=== PATIENT | female | born 1940 | race African-American/Black ===

== ENCOUNTER 2022-01-18 08:39 | Emergency (ER) | payer MEDICARE ==
[~2022-01-18] VITALS: Ht 175.3 cm; Wt 91.0 kg
[2022-01-18] MEDS ORDERED: TETANUS, DIPHTHERIA, PERTUSSIS VAC/PF 0.5ML (>10YR OLD) IM ONE (09:15)
[2022-01-18] MEDS ORDERED: ACETAMINOPHEN 325MG TABLET PO ONE (09:15)
[2022-01-18 09:43] VITALS: BP 125/84
[2022-01-18] MEDS ORDERED: MORPHINE SULFATE 10 MG/ML CPJ IM ONE (09:45)
[2022-01-18] MEDS ORDERED: BACITRACIN ZINC OINT UDPKT TOP ONE (10:30)
[2022-01-18] MEDS ORDERED: LIDOCAINE HCL/PF 1% 10 MG/ML 5ML VIAL INFIL ONE (10:30)
[2022-01-18] MEDS ORDERED: TOPUD MT (12:22)
[2022-01-18] MEDS ORDERED: HYDR-4001 MT (12:22)
== END 2022-01-18 12:42 | disposition home or self-care (01) ==
LOC: ER 09:00
DX: S63.257A Unspecified dislocation of left little finger, initial encounter (principal); R51.9 Headache, unspecified; I10 Essential (primary) hypertension; Z88.0 Allergy status to penicillin; Z13.9 Encounter for screening, unspecified; W18.30XA Fall on same level, unspecified, initial encounter; Y93.01 Activity, walking, marching and hiking; Y92.89 Other specified places as the place of occurrence of the external cause; Y99.8 Other external cause status
CPT/HCPCS: 12002; 70450; 73130; 90471; 90715; 96372; 99284; J2270; J3490

== ENCOUNTER 2022-02-03 11:53 | Emergency (ER) | payer MEDICARE ==
[~2022-02-03] VITALS: Ht 170.2 cm; Wt 73.0 kg
[~2022-02-03 11:53] MED LIST: HYDR-4001 MT; TOPUD MT
[2022-02-03 11:58] VITALS: BP 179/87
== END 2022-02-03 14:44 | disposition left against medical advice (07) ==
LOC: ER 11:53
DX: Z53.21 Procedure and treatment not carried out due to patient leaving prior to being seen by health care provider (principal); I10 Essential (primary) hypertension; Z88.0 Allergy status to penicillin